=== PATIENT | female | born 1960 | race Caucasian/White ===

== ENCOUNTER → 2023-07-07 15:30 | Outpatient (REF) | payer OTHER, SELFPAY | LOC: RAD 15:30 | PROVIDERS: ATTENDING PHYSICIAN Physician Assistant | DX: M79.652 Pain in left thigh (principal); Z87.81 Personal history of (healed) traumatic fracture | CPT/HCPCS: 73502; 73552 ==

== ENCOUNTER → 2023-07-12 10:38 | Outpatient (REF) | payer OTHER, SELFPAY | LOC: PAVMRI 10:38 | PROVIDERS: ATTENDING PHYSICIAN Physician Assistant | DX: M79.652 Pain in left thigh (principal); Z87.81 Personal history of (healed) traumatic fracture | CPT/HCPCS: 73718 ==

== ENCOUNTER → 2023-07-29 06:59 | Outpatient (REF) | payer OTHER, SELFPAY | LOC: MRI 3T 06:59 | PROVIDERS: ATTENDING PHYSICIAN Orthopaedic Surgery; FAMILY PHYSICIAN Family Medicine | DX: M25.552 Pain in left hip (principal) | CPT/HCPCS: 73721 ==

== ENCOUNTER → 2023-08-01 09:33 | Outpatient (REF) | payer OTHER, SELFPAY ==
[2023-08-01 10:56] LABS: % Basophils 0.8 % (0-2); % Eosinophils 5.9 % (0-6); % Immature Granulocytes 0.3 % (0-0.5); % Lymphocytes 22.6 % (20.5-51.1); % Monocytes 5.6 % (1.7-9.3); % Neutrophils 64.8 % (42.2-75.2); Absolute Basophils 0.1 10^3/uL (0-0.2); Absolute Eosinophils 0.4 10^3/uL (0-0.7); Absolute Lymphocytes 1.3 10^3/uL (1.2-3.4); Absolute Monocytes 0.3 10^3/uL (0.1-0.6); Absolute Neutrophils 3.8 10^3/uL (1.4-6.5); Hematocrit 37.8 % (37.0-47.0); Hemoglobin 12.4 g/dL (12.0-16.0); Mean Corp Hgb Conc. 32.8 g/dL (33.0-37.0); Mean Corpuscular Hgb 27.7 pg (27.0-31.0); Mean Corpuscular Volume 84.6 fL (81.0-99.0); Mean Platelet Volume 9.1 fL (7.4-10.4); Nucleated Red Blood Cells % 0 %; Platelet Count 167 10^3/uL (130-400); Red Blood Cell Count 4.47 10^6/uL (4.20-5.40); Red Cell Dist. Width 13.5 % (11.5-14.5); White Blood Cell Count 5.9 10^3/uL (4.8-10.8)
[2023-08-01 11:05] LABS: INR 1.05; PT 13.5 Sec (11.4-14.6)
[2023-08-01 11:47] LABS: ALT (SGPT) 16 U/L (0-35); AST (SGOT) 24 U/L (14-36); Albumin 4.6 g/dl (3.5-5.0); Alkaline Phosphatase 108 U/L (38-126); Blood Urea Nitrogen 19 mg/dl (7-17); Calcium 10.2 mg/dl (8.4-10.2); Carbon Dioxide 25 mmol/L (22-30); Chloride 105 mmol/L (98-107); Glucose 115 mg/dl (70-99); Sodium 140 mmol/L (135-145); Total Bilirubin 0.6 mg/dl (0.2-1.3); Total Protein 6.7 g/dl (6.3-8.2); eGFR > 60.00
[2023-08-04 16:03] LABS: Intact PTH 82.9 pg/ml (13.6-85.8)
== END ==
LOC: REG 09:33
PROVIDERS: ATTENDING PHYSICIAN Orthopaedic Surgery; FAMILY PHYSICIAN Family Medicine
DX: Z01.818 Encounter for other preprocedural examination (principal)
CPT/HCPCS: 36415; 80053; 83970; 85025; 85610; 93005

== ENCOUNTER 2023-08-02 06:22 | Inpatient (IN) | payer OTHER, SELFPAY ==
[2023-08-02] VITALS (17 sets, daily range): BP systolic 104–167; BP diastolic 54–90; PULSE 86; O2SAT 90; BMI 35.0
[2023-08-02] MEDS: TYLENOL 1000 MG PO (08:54)
[2023-08-02] MEDS: CELEBREX 200 MG PO (08:54)
[2023-08-02] MEDS: NORMOSOL-R 1000 IV ×2 (09:20→12:41)
--- NOTE | 2023-08-02 09:32 | CM ---
Received a call from Same Day Surgery RN; asked to meet with patient, Deb Shelton, because she responded YES when asked if patient felt down, depressed, or hopeless over the past 2 weeks; and Yes again when asked if she had thoughts of killing
herself
Chart reviewed. Patient has a history of Anxiety disorder and Major Depressive Disorder; she has a severe subtrochanteric femur stress fracture; and elected to proceed with recommended surgical intervention today
Met with patient in Same Day Surgery unit, Room 7
Patient reported the she has had pain for the past month; and limited mobility
She reported that she spoke to her Therapist yesterday because she was fearful and anxious about having surgery today
She also reported that she sees a Psychiatrist and has an appointment to see them in 2 weeks
Patient stated that she has never acted on idea of suicide in the past
Patient's nurse advised to contact Anesthesiologist and Surgeon; inform them of results of suicide screen
Received a [place] Text @ [phone] from the [facility] nurse; both the Surgeon and Anesthesiologist plan to proceed with surgery
--- NOTE | 2023-08-02 09:33 | PTCARENOTE ---
When asking patient the suicide screening questions patient stated that she did feel suicidal in the last 2 weeks. Case management up to talk with patient. Case management stated that after talking to patient they felt that she was feeling sad due
to decreased mobilty and recent pain. Patient told rn case management that she spoke with her therapist yesterday and plans to see her psychiatrist in the next 2 weeks. Patient has had these feelings in the past but never acted on them. Dr. Eli
made aware and is ok to proceed with surgery. Dr. Cornejo states that he is ok with proceeding as well. Patient also states that she is fine and wants to proceed.
--- NOTE | 2023-08-02 10:33 | PTCARENOTE ---
Patient offered a psych consult (patient is staying overnight) and patient completely refused. student financial aid manager offered this to patient. Will monitor patient.
[2023-08-02 11:05] LABS: Glycohemoglobin (HgbA1c) 6.3 % (4.0-5.6)
[2023-08-02] MEDS: DILAUDID 0.5 MG IV ×3 (12:12→13:07)
[2023-08-02] MEDS: ROXICODONE 10 MG PO ×2 (14:41→20:03)
[2023-08-02] MEDS: TYLENOL 650 MG PO (15:19)
--- NOTE | 2023-08-02 16:10 | CM ---
CM consult for Discharge planning. ORIF L hip on this date. Will await therapy evaluation to determine discharge plan of care.
[2023-08-02 16:48] LABS: Calcium 9.1 mg/dl (8.4-10.2)
[2023-08-02] MEDS: ASPIRIN 325 MG PO (17:24)
[2023-08-02] MEDS: CELEBREX 100 MG PO (20:02)
[2023-08-02] MEDS: ANCEF 5 IV (20:02)
[2023-08-02] MEDS: COLACE 100 MG PO (20:03)
--- NOTE | 2023-08-02 22:45 | PTCARENOTE ---
Pt has ambulated w RW to toilet w standby assist. Pt c/o of 10 pain w ambulation/ movement, medicated accordingly. Assessment ongoing.
[2023-08-03] MEDS: ROXICODONE 10 MG PO ×3 (01:22→12:05)
[2023-08-03] MEDS: NORMOSOL-R 1000 IV (01:30)
[2023-08-03 03:55] VITALS: BP 137/68
[2023-08-03] MEDS: ANCEF 5 IV (03:57)
[2023-08-03] MEDS: ATIVAN 1 MG PO (06:13)
[2023-08-03 07:05] VITALS: BP 145/77
--- NOTE | 2023-08-03 07:31 | W.PN.ORTHO ---
Today's Communication / Plan
-
PT/OT this morning
Weightbearing as tolerated
Aspirin for DVT prophylactics
Discharge to home later today
Assessment
.
Distal Motor Intact: Yes
Dressing:
Clean, dry and intact.
Plan
.
Surgery / Date: L hip Gamma Nail 08/01 [place]
DVT Prophylaxis: Aspirin
Activity:
Out of bed.
PT/OT
Discharge Plan: Home
Subjective
.
.:
Patient resting comfortably.
Vital Signs and Labs
.
Vital Signs and Labs:
Temp Pulse Resp BP Pulse Ox
98.7 F 71 16 137/68 97
08/03/23 03:55 08/03/23 03:55 08/03/23 03:55 08/03/23 03:55 08/03/23 03:55
--- NOTE | 2023-08-03 07:33 | W.DS.TRANS ---
DC Summary - [employer] T[employer]
-
Discharge Instructions:
Sleep Apnea Risk Intermediate
Discharge Diagnosis/Procedures S/p left hip gamma nail
Diet No restrictions,As tolerated
Activity As tolerated,With Walker
Driving Restrictions No driving
Bathing Restrictions OK to Shower
Other Services PT,VN
Wound Care Aquacel dressings to remain in place x 1 week,
then may be removed
Instructions:
Stand-Alone Forms:
Changes to Home Medications: No
Discharge Medications:
DC Medications w/original date entered in [employer]
pantoprazole 40 mg tablet,delayed release 40 mg PO DAILY Gastrointestinal issue 09/14/20
vortioxetine 20 mg tablet (Trintellix) 20 mg PO DAILY mental health 09/14/20
ondansetron 4 mg disintegrating tablet 8 mg PO BID 10/26/20
ergocalciferol (vitamin D2) 1,000 unit capsule 1,250 mcg PO QWEEK 08/01/23
ibuprofen 200 mg tablet 600 mg PO Q6H PRN pain 08/01/23
lamotrigine 300 mg tablet,extended release 24 hr 300 mg PO DAILY 08/01/23
lamotrigine 50 mg tablet,extended release 24 hr 50 mg PO DAILY 08/01/23
lisinopril 20 mg tablet 20 mg PO DAILY 08/01/23
lorazepam 1 mg tablet 1 mg PO .UP TO 4 TIMES A DAY PRN anxiety 08/01/23
rosuvastatin 20 mg tablet 20 mg PO DAILY 08/01/23
Home Medication Changes
Pending Results: No
[2023-08-03] MEDS: ZESTRIL 20 MG PO (07:51)
[2023-08-03] MEDS: ASPIRIN 325 MG PO (07:51)
[2023-08-03] MEDS: CELEBREX 100 MG PO (07:52)
[2023-08-03] MEDS: PROTONIX 40 MG PO (07:52)
[2023-08-03] MEDS: CRESTOR 20 MG PO (07:53)
[2023-08-03] MEDS: NON-FORMULARY ITEM 20 MG PO (07:53)
[2023-08-03] MEDS: COLACE 100 MG PO (07:53)
[2023-08-03] MEDS: ZOFRAN 4 MG IV (09:02)
[2023-08-03 09:32] VITALS: BP 156/90; PULSE 85
[2023-08-03 10:42] VITALS: BP 134/72; PULSE 81; O2SAT 94
--- NOTE | 2023-08-03 10:56 | CM ---
Patient has been medically cleared for discharge to home with [facility] VN and PT/OT services. Patient has arranged for transport home.
[2023-08-03 12:47] VITALS: BP 139/61
== END 2023-08-03 13:09 | disposition home health service (06) | DRG 482 ==
LOC: 2 SOUTH 06:22
PROVIDERS: ADMITTING PHYSICIAN Orthopaedic Surgery
PROC: 0QS706Z Reposition Left Upper Femur with Intramedullary Internal Fixation Device, Open Approach (ICD-10-PCS; 2023-08-02)
DX: M84.359A Stress fracture, hip, unspecified, initial encounter for fracture (principal); E66.01 Morbid (severe) obesity due to excess calories; X58.XXXA Exposure to other specified factors, initial encounter; Y93.9 Activity, unspecified; Y92.9 Unspecified place or not applicable; Z68.35 Body mass index [BMI] 35.0-35.9, adult; Z88.0 Allergy status to penicillin; Z91.040 Latex allergy status; Z88.5 Allergy status to narcotic agent; Z91.048 Other nonmedicinal substance allergy status
CPT/HCPCS: 73502; 76000; 83036; 83970; 97116; 97162; 97167; 97530; C1713; C1769

== ENCOUNTER 2023-09-22 13:42 | Outpatient (RCR) | payer OTHER, SELFPAY | END 2023-09-22 23:59 | disposition home or self-care (01) | LOC: RPT 13:42 | PROVIDERS: ATTENDING PHYSICIAN Orthopaedic Surgery; FAMILY PHYSICIAN Family Medicine | DX: Z47.89 Encounter for other orthopedic aftercare (principal); M84.452D Pathological fracture, left femur, subsequent encounter for fracture with routine healing; Z73.6 Limitation of activities due to disability | CPT/HCPCS: 97110; 97162 ==

== ENCOUNTER 2023-11-01 10:31 | Outpatient (RCR) | payer OTHER, SELFPAY | END 2023-11-01 23:59 | disposition home or self-care (01) | LOC: RPT 10:31 | PROVIDERS: ATTENDING PHYSICIAN Orthopaedic Surgery; FAMILY PHYSICIAN Family Medicine | DX: M84.452D Pathological fracture, left femur, subsequent encounter for fracture with routine healing (principal); Z73.6 Limitation of activities due to disability | CPT/HCPCS: 97110; 97112; 97140; 97530 ==

== ENCOUNTER → 2023-11-02 15:00 | Outpatient (REF) | payer OTHER, SELFPAY | LOC: RAD 15:00 | PROVIDERS: ATTENDING PHYSICIAN Family Medicine; REFERRING PHYSICIAN Orthopaedic Surgery | DX: M80.00XS Age-related osteoporosis with current pathological fracture, unspecified site, sequela (principal) | CPT/HCPCS: 77080 ==

== ENCOUNTER 2023-11-15 09:58 | Outpatient (RCR) | payer OTHER, SELFPAY | END 2023-11-15 14:09 | disposition home or self-care (01) | LOC: RPT 09:58 | PROVIDERS: ATTENDING PHYSICIAN Orthopaedic Surgery; FAMILY PHYSICIAN Family Medicine | DX: Z47.89 Encounter for other orthopedic aftercare (principal); M84.452D Pathological fracture, left femur, subsequent encounter for fracture with routine healing; Z98.890 Other specified postprocedural states; Z73.6 Limitation of activities due to disability | CPT/HCPCS: 97110; 97112 ==

== ENCOUNTER → 2024-04-16 10:18 | Outpatient (REF) | payer OTHER, SELFPAY | LOC: MRI 3T 10:18 | PROVIDERS: ATTENDING PHYSICIAN Orthopaedic Surgery; FAMILY PHYSICIAN Family Medicine | DX: M25.551 Pain in right hip (principal) | CPT/HCPCS: 73721 ==

== ENCOUNTER → 2024-09-27 11:52 | Outpatient (REF) | payer OTHER, SELFPAY | LOC: RAD 11:52 | PROVIDERS: ATTENDING PHYSICIAN Orthopaedic Surgery; FAMILY PHYSICIAN Family Medicine | DX: M84.352A Stress fracture, left femur, initial encounter for fracture (principal); M16.11 Unilateral primary osteoarthritis, right hip | CPT/HCPCS: 73521; 73552 ==

== ENCOUNTER → 2024-11-12 15:54 | Outpatient (REF) | payer OTHER, SELFPAY | LOC: RAD 15:54 | PROVIDERS: ATTENDING PHYSICIAN Orthopaedic Surgery; FAMILY PHYSICIAN Family Medicine | DX: M25.551 Pain in right hip (principal) | CPT/HCPCS: 73502 ==

== ENCOUNTER 2024-12-31 09:01 | Outpatient (RCR) | payer OTHER, SELFPAY | END 2024-12-31 23:59 | disposition home or self-care (01) | LOC: RPT 09:01 | PROVIDERS: ATTENDING PHYSICIAN Orthopaedic Surgery; FAMILY PHYSICIAN Family Medicine | DX: M16.11 Unilateral primary osteoarthritis, right hip (principal); Z73.6 Limitation of activities due to disability; M25.551 Pain in right hip; Z98.1 Arthrodesis status | CPT/HCPCS: 97110; 97112; 97162 ==

== ENCOUNTER 2025-01-10 06:31 | Day surgery (SDC) | payer OTHER, SELFPAY | END 2025-01-10 09:46 | disposition home or self-care (01) | LOC: GI 06:31 | PROVIDERS: ATTENDING PHYSICIAN Internal Medicine | DX: Z12.11 Encounter for screening for malignant neoplasm of colon (principal); K57.30 Diverticulosis of large intestine without perforation or abscess without bleeding; K64.9 Unspecified hemorrhoids; Z86.0101 Personal history of adenomatous and serrated colon polyps | CPT/HCPCS: G0105 ==